=== PATIENT | female | born 1975 | race Asian ===

== ENCOUNTER 2023-04-05 16:50 | Emergency (ER) | payer OTHER ==
[~2023-04-05] VITALS: Ht 152.4 cm; Wt 68.2 kg
[2023-04-05 17:11] LABS: COVID AG,FIA SOURCE NASAL SWAB
[2023-04-05 17:48] LABS: SARS-COV2 (COVID) ANTIGEN,FIA Negative (Negative)
[2023-04-05 17:50] LABS: INFLUENZA TYPE A NEGATIVE FOR TYPE A (NEGATIVE); INFLUENZA TYPE B NEGATIVE FOR TYPE B (NEGATIVE)
[2023-04-05 18:33] VITALS: BP 161/105; PULSE 94; RESP 18; TEMP 99.2
[2023-04-05] MEDS ORDERED: BENZ-227 PO ×2 (18:50→19:31)
[2023-04-05] MEDS ORDERED: LISI-893 PO ×2 (18:50→19:31)
[2023-04-05] MEDS ORDERED: PSEU-191 PO (19:31)
== END 2023-04-05 19:01 | disposition home or self-care (01) ==
LOC: EMS 16:56
DX: J06.9 Acute upper respiratory infection, unspecified (principal); I10 Essential (primary) hypertension; Z20.822 Contact with and (suspected) exposure to COVID-19
CPT/HCPCS: 71045; 87804; 99284